=== PATIENT | male | born 1990 | race American Indian/Alaskan Native ===

== ENCOUNTER 2018-09-22 16:59 | Emergency (ER) | payer SELFPAY ==
[2018-09-22 17:21] VITALS: BP 136/78; PULSE 78; RESP 20; TEMP 98.5; O2SAT 98
[2018-09-22] MEDS ORDERED: cefTRIAXone (Rocephin) 250 mg Inj IM STA (17:26)
--- NOTE | 2018-09-22 17:34 | ED PDOC ---
Arrival/HPI - General Chief Complaint: Male Genitourinary Time Seen by Provider: 09/22/18 17:19 - History of Present Illness Narrative History of Present Illness (Text): 09/22/18 17:32 28-year-old male presents to the emergency room for yellowish discharge and dysuria which started yesterday. Patient states that he had a new sexual partner. Otherwise reports no fever, chills, abdominal pain, nausea, vomiting, rash or any lesions to the genital area. Past Medical History - Infectious Disease Hx of Infectious Diseases: None - Psychiatric Hx Substance Use: No - Anesthesia Hx Anesthesia: No Family/Social History Family/Social History: No Known Family HX Smoking Status: Current Some Days Smoker Hx Alcohol Use: No Hx Substance Use: No Allergies/Home Meds Allergies/Adverse Reactions: Allergies No Known Allergies Allergy (Verified 09/22/18 17:21) Home Medications: Home Meds Medication Instructions Recorded Confirmed No Known Home Med 09/22/18 09/22/18 Review of Systems - Review of Systems Constitutional: absent: Fatigue, Fevers Gastrointestinal: absent: Abdominal Pain, Nausea, Vomiting Genitourinary Male: Dysuria, Other (+penile d/c). absent: Frequency, Hematuria Musculoskeletal: absent: Arthralgias, Back Pain, Neck Pain Skin: absent: Rash, Pruritis, Skin Lesions, Ulcer Physical Exam Vital Signs Temp Pulse Resp BP Pulse Ox 09/22/18 17:16 98.5 F 78 20 136/78 98 Temperature: Afebrile Blood Pressure: Normal Pulse: Regular Respiratory Rate: Normal Appearance: Positive for: Well-Appearing, Non-Toxic, Comfortable Pain Distress: None Mental Status: Positive for: Alert and Oriented X 3 - Systems Exam Head: Present: Atraumatic, Normocephalic Mouth: Present: Moist Mucous Membranes Neck: Present: Normal Range of Motion Respiratory/Chest: Present: Clear to Auscultation, Good Air Exchange. No: Respiratory Distress, Accessory Muscle Use Cardiovascular: Present: Regular Rate and Rhythm, Normal S1, S2. No: Murmurs Abdomen: No: Tenderness, Distention, Peritoneal Signs Back: Present: Normal Inspection. No: CVA Tenderness Upper Extremity: Present: Normal Inspection. No: Cyanosis, Edema Lower Extremity: Present: Normal Inspection. No: Edema Neurological: Present: GCS=15, CN II-XII Intact, Speech Normal Skin: Present: Warm, Dry, Normal Color. No: Rashes Psychiatric: Present: Alert, Oriented x 3, Normal Insight, Normal Concentration Medical Decision Making ED Course and Treatment: 09/22/18 17:33 Plan : - zithromax 1 g PO - rocephin 250 mg IM - GC cx Advised to follow up with primary care physician or referral provided in 1-2 days without fail. Return to the emergency room at any time for any new or worsening symptoms. Patient states he fully agrees with and understands discharge instructions. States that he agrees with the plan and disposition. Verbalized and repeated discharge instructions and plan. I have given the patient opportunity to ask any additional questions. 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 Disposition/Present on Arrival - Present on Arrival Any Indicators Present on Arrival: No History of DVT/PE: No History of Uncontrolled Diabetes: No Urinary Catheter: No History of Decub. Ulcer: No History Surgical Site Infection Following: None - Disposition Have Diagnosis and Disposition been Completed?: Yes Diagnosis: Urethritis Disposition: HOME/ ROUTINE Disposition Time: 17:30 Patient Plan: Discharge Condition: STABLE Discharge Instructions (ExitCare): Urethritis (DC) Additional Instructions: Thank you for letting us take care of you today. You were treated for urethritis. The emergency medical care you received today was directed at your acute symptoms. It may take several days for your symptoms to resolve. Refrain from any sexual activity for at least 2 weeks to ensure resolution of symptoms, please make sure you notify your recent partners to have them tested and treated. Return to the Emergency Department if your symptoms worsen, do not improve, or if you have any other problems. Please contact your doctor in 2 days for re-evaluation and follow up / or call one of the physicians/clinics you have been referred to that are listed on the Patient Visit Information form that is included in your discharge packet. Bring any paperwork you were given at discharge with you along with any medications you are taking to your follow up visit. Our treatment cannot replace ongoing medical care by a primary care provider (PCP) outside of the emergency department. Thank you for allowing the [facility] team to be part of your care today. If you had an STI test: It will take 48 hours for the results. Please call after 1 week if you have not heard back. Referrals: [facility] [place] - Follow up with primary
== END 2018-09-22 17:40 | disposition home or self-care (01) ==
LOC: ED 16:59
DX: N34.2 Other urethritis (principal)
CPT/HCPCS: 87491; 87591; 96372; 99283; J0696